=== PATIENT | male | born 1975 | race Caucasian/White ===

== ENCOUNTER 2017-06-29 21:27 | Emergency (ER) | payer OTHER ==
[~2017-06-29] VITALS: Ht 188 cm; Wt 95.3 kg
--- NOTE | 2017-06-29 21:54 | Emergency Room Report ---
History of Present Illness Time Seen by [id number] Presenting Problem in Triage Pt arrived:Walked Presenting Problem:C/O PAIN TO ABD. REPORTS HAS A HERNIA, INCREASED PAIN IN PAST 2 DAYS. RED AROUND SITE Onset of symptoms date/time:06/27/17/ or onset unknown for:MEDICAL HX UNKNOWN Treatment Prior to Arrival: [employer] Provided by: Sepsis Risk Assessment: Temp: 98.7 B/P: 133/91 MAP: 105 Pulse: 92 Resp: 18 Recent fever? N Clinical Suspician of Infection? N Mental Status: 1 - Regular (Normal Baseline) Sepsis Risk:Low Sepsis Risk Have you (or family members/close friends) recently traveled outside the [place]? N If Yes, where/when: Have you had exposure to infectious disease within the past month? TB? Other? Specify: Source patient, RN notes reviewed, family, old records Exam Limitations no limitations Comment progressive umbilical pain over the last 2 days with nausea and no fever with reddness at site Cardiac Chest Pain Chest pain indicative of cardiac No Timing/Duration this evening Severity moderate ALLERGIES Coded Allergies: No Known Allergies (06/29/17) Home Medications Reported Medications No Known Home Medications History Medical History General CAD? No Angina: No AR: No Hypertension? No Hyperlipidemia? No CHF? No DVT? No PE? No COPD? No Asthma? No Anemia? No GERD? No Gastric ulcers? No GI Bleed? No Hernia? No Thyroid Problems? No Hypothyroidism? No CVA? No Seizures? No Diabetes? No Renal Insuffiency? No End Stage Renal Disease? No UTI? No Stones? No BPH? No GB Disease: No Nephritic Syndrome? No Asplenia? No Hepatitis? No Sickle Cell Disease? No Arthritis? No Migraines? No Cataracts? No Glaucoma? No MRSA? No HIV? No TB? No Anxiety? No Depression? No Cancer? No More? No Immunization Hx DT/Tetanus 5-10 Years Ago Surgical Hx Previous Surgery?N Social History Smoking Hx Smoker: Current Every Day Smoker Tobacco: Yes Type Cigarettes Alcohol Alcohol: Yes Drugs none Review of Systems All Other Systems Reviewed and Negative Constitutional denies fever Eyes denies drainage ENT denies: ear pain, epistaxis, throat pain. Respiratory denies cough, denies shortness of breath, denies wheezing Cardiovascular denies chest pain, denies syncope Gastrointestinal see HPI, abdominal pain, denies diarrhea, nausea, denies vomiting Genitourinary denies: dysuria, frequency, hesitancy. Musculoskeletal denies back pain, denies joint pain, denies neck pain Skin denies rash Psychiatric/Neurological denies headache, denies seizure Physical Exam Vital Signs Vital Signs Date Time Temp Pulse Resp B/P Pulse O2 O2 Flow FiO2 Ox Delivery Rate 06/29 2330 18 06/29 2330 18 06/29 2311 71 18 118/70 93 06/29 2241 95 18 116/71 95 06/29 2136 98.7 92 18 133/91 95 - WBC >12,000 or <4,000 or 10% bands? 2 or more SIRS Criteria Met? B/P:118/70 MAP:105 Creatinine >2.0? UA output<0.5ml/kg/hr for 2 hrs? Platelet count >100,000? Lactate >2.0mmol/1? INR >1.2 or PTT > than 60 sec? Evidence of Organ Dysfunction? Provider documented clinical suspician of infection? N Sepsis Criteria Count: 1 Sepsis Risk: Low Sepsis Risk General Appearance no apparent distress Eye Exam - bilateral eye PERRL, bilateral eye EOMI Ear, Nose, Throat normal ENT inspection Neck supple Respiratory Status No: respiratory distress. Lung Sounds bilateral: lungs clear. 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 No Results/Orders Laboratory Tests 06/29/172155: Lactic Acid 1.2 06/29/172155: Sodium 142, Potassium 3.5, Chloride 104, Carbon Dioxide 27, BUN 11, Creatinine 1.2, Estimated Creat Clear 108, Estimated GFR (MDRD) 66, Glucose 99, Calcium 8.3 L, Total Bilirubin 0.6, AST 13 L, ALT 28, Alkaline Phosphatase 107, Total Protein 6.9, Albumin 3.6, Globulin 3.3 H, Albumin/Globulin Ratio 1.1, Amylase 64, Lipase 221, WBC 7.2, RBC 5.59, Hgb 17.2, Hct 52.3 H, MCV 93.6, RDW 13.2, Plt Count 200, MPV 8.8, Gran % 63.5, Gran # 4.6, Lymphocytes % 27.6, Monocytes % 6.6, Eosinophils % 2.0, Basophils % 0.3, Lymphocytes # 2.0, Monocytes # 0.5, Eosinophils # 0.2, Basophils # 0.0, PUBS MCHC 32.9, MCH 30.8 Current Medication Orders Sig/Neftali Start time Last Medication Dose Route Stop Time Status Admin Ketorolac 30 MG ONCE ONE 06/29 2330 DC 06/29 Tromethamine IV 06/29 2331 233 Morphine Sulfate 4 MG ONCE ONE 06/29 2330 DC 06/29 IV 06/29 2331 233 Ondansetron HCl 4 MG ONCE ONE 06/29 2330 DC 06/29 IV 06/29 233 2330 Ketorolac 0 .STK-MED ONE 06/29 2326 DC Tromethamine .ROUTE Ondansetron HCl 0 .STK-MED ONE 06/29 2326 DC .ROUTE Morphine Sulfate 0 .STK-MED ONE 06/29 2325 DC .ROUTE Iopamidol 75 ML ONCE ONE 06/29 2215 UNV 06/29 IV 06/29 2216 221 Sodium Chloride 10 ML ONCE ONE 06/29 2215 UNV 06/29 IV 06/29 2216 221 Sodium Chloride 10 ML PRN PRN 06/29 2200 AC IV 06/30 2154 Orders Procedure Date/time Status DIET-NOTHING BY MOUTH 06/[address] SCAN REQ 06/[address] ABD & PELVIS W/ CONTRAST 06/29 2156 Active IV SALINE LOCK 06/29 2155 Active LIPASE 06/29 2155 Complete LACTIC ACID 06/29 2155 Complete COMPLETE METABOLIC PANEL 06/29 2155 Complete CBC WITH AUTO DIFF 06/29 2155 Complete AMYLASE 06/29 2155 Complete XRAY/CT/US XRAY/CT/US CT abdomen, pelvis CT interpretation by discussed w/radiologist Time results known: 2342 CT Results abnormal (see report ) Departure Departure Time of Disposition 2339 Disposition DC Home or Self Care(routine) Clinical Impression Primary Impression: Umbilical hernia Qualifiers: Obstruction and gangrene presence: without obstruction or gangrene Qualified Code: K42.9 - Umbilical hernia without obstruction or gangrene Condition STABLE Referrals Chi Butler MD discussed with dr butler Patient Instructions DI for Ventral Hernia Additional Instructions call pcp and dr butler in am use motrin Discharge Counseling Counseled pt/family regarding diagnosis, test results, medications/RX, follow up needs Prescriptions Current Visit Scripts No Known Home Medications ED Critical Care Critical Care No at 1848
[2017-06-29 22:05] LABS: HEMOGLOBIN 17.2 g/dL (14.1-18.0); LYMPH % 27.6 % (10-50)
[2017-06-29 23:55] VITALS: BP 118/70
--- NOTE | 2017-06-30 08:03 | RADIOLOGY REPORT PS360 ---
CT ABD PELVIS W/ CONTRAST COMPARISON: None HISTORY: Periumbilical abdominal pain TECHNIQUE: Multiaxial scans obtained from the hemidiaphragms the pelvic floor and were performed with IV contrast only. Sagittal coronal reformats were evaluated as well. FINDINGS: Scans through the lower chest show a 6 mm noncalcified nodule right lower lobe. There is no pleural fluid. The liver spleen stomach pancreas and gallbladder appear normal. The adrenal glands are normal. The kidneys are normal size and show symmetrical function both appearing normal. Small bowel is unremarkable. The appendix is normal and partially air-filled. There is a small umbilical hernia measuring 2.1 cm at the mouth containing fat and posterior some minimal mesentery. There is mild to moderate scattered stool in ascending and transverse colon. The urinary bladder and prostate appear normal. IMPRESSION: 1. Small umbilical hernia as described above 2. 6 mm noncalcified pulmonary nodule, if the patient is high risk consider follow-up CT scan in 6-12 months, low risk suggest follow-up CT scan in 12 months for continuing evaluation
--- OUTSIDE RECORDS SUMMARY | 2017-07-07 00:45 | External Medical Summary Rpt | CCD ---
Demographics Preferred Language Uruguayan Marital Status Unknown Advent Affiliation Unknown Race Unknown Ethnic Group Unknown Author Author , DORIE OSHEA Address Unknown Phone Immunization No patient found.
--- OUTSIDE RECORDS SUMMARY | 2017-07-07 00:45 | External Medical Summary Rpt | CCD ---
Demographics Preferred Language Northern Irish Marital Status Unknown Caodaism Affiliation Unknown Race Unknown Ethnic Group Unknown Author Author , DORIE OSHEA Address Unknown Phone Immunization No patient found.
--- OUTSIDE RECORDS SUMMARY | 2017-07-07 00:45 | External Medical Summary Rpt ---
Author Author [employer], [employer] Organization [employer] Address Unknown Phone Unavailable Results Amylase [Enzymatic activity/volume] in Serum or Plasma Observa Value Referen Units Interpr Notes Date tion ce etation Range Amylase 25 - 115 U/L Normal No Jun 5 [Enzymati informati 2017 9:56 c on in PM activity/ source volume] data in Serum or Plasma Comprehensive metabolic 2000 panel in Serum or Plasma Observa Value Referen Units Interpr Notes Date tion ce etation Range Albumin/G 1.1 - 1.8 No Normal No Jun 5 lobulin informati informati 2017 9:56 [Mass on in on in PM ratio] in source source Serum or data data Plasma Albumin 3.4 - 5.0 gm/dL Normal No Jun 29 [Mass/vol informati 2017 9:56 ume] in on in PM Serum or source Plasma data Alkaline 46 - 116 U/L Normal No Jun 29 phosphata informati 2017 9:56 se on in PM [Enzymati source c data activity/ volume] in Serum or Plasma Bilirubin 0.2 - 1.0 mg/dL Normal No Jun 5 .total informati 2017 9:56 [Mass/vol on in PM ume] in source Serum or data Plasma Urea 7 - 18 mg/dL Normal No Jun 29 nitrogen informati 2017 9:56 [Mass/vol on in PM ume] in source Serum or data Plasma Calcium 8.5 - mg/dL Low No Jun 29 [Mass/vol 10.1 informati 2017 9:56 ume] in on in PM Serum or source Plasma data Chloride 98 - 107 mmoL/L Normal No Jun 5 [Moles/vo informati 2017 9:56 lume] in on in PM Serum or source Plasma data Carbon 21.0 - mmoL/L Normal No Jun 5 dioxide, 32.0 informati 2017 9:56 total on in PM [Moles/vo source lume] in data Serum or Plasma Creatinin 0.70 - mg/dL Normal No Jun 5 e 1.30 informati 2016 9:56 [Mass/vol on in PM ume] in source Serum or data Plasma Creatinin 50 - 200 ML/MIN Normal No Jun 29 e renal informati 2016 9:56 clearance on in PM source predicted data by Cockcroft -Gault formula Estimated >60 ML/MIN No REFERENCE Jun 29 informati RANGE: 2017 9:56 glomerula on in >60 PM r source ML/MIN/1. filtratio data 73 SQUARE n rate METERSIf (GF this patient is -A merican, then multiply theresult by 1.210. Globulin 1.3 - 3.2 gm/dL High No Jun 29 [Mass/vol informati 2016 9:56 ume] in on in PM Serum source data Glucose 74 - 106 mg/dL Normal No Jun 29 [Mass/vol informati 2016 9:56 ume] in on in PM Serum or source Plasma data Potassium 3.5 - 5.1 mmoL/L Normal No Jun 29 informati 2016 9:56 [Moles/vo on in PM lume] in source Serum or data Plasma Sodium 136 - 145 mmoL/L Normal No Jun 29 [Moles/vo informati 2016 9:56 lume] in on in PM Serum or source Plasma data Aspartate 15 - 37 U/L Low No Jun 29 informati 2016 9:56 aminotran on in PM sferase source [Enzymati data c activity/ volume] in Serum or Plasma Alanine 12 - 78 U/L Normal No Jun 29 aminotran informati 2016 9:56 sferase on in PM [Enzymati source c data activity/ volume] in Serum or Plasma Protein 6.4 - 8.2 gm/dL Normal No Jun 29 [Mass/vol informati 2016 9:56 ume] in on in PM Serum or source Plasma data Lipase [Enzymatic activity/volume] in Serum or Plasma Observa Value Referen Units Interpr Notes Date tion ce etation Range Lipase 73 - 393 U/L Normal No Jun 29 [Enzymati informati 2016 9:56 c on in PM activity/ source volume] data in Serum or Plasma Lactate [Moles/volume] in Blood Observa Value Referen Units Interpr Notes Date tion ce etation Range Lactate 0.4 - 2.0 mmol/L Normal No Jun 29 [Moles/vo informati 2016 9:56 lume] in on in PM Blood source data CBC W Auto Differential panel in Blood Observa Value Referen Units Interpr Notes Date tion ce etation Range Basophils 0 - 0.2 K/MM3 Normal No Jun 29 informati 2016 9:56 [#/volume on in PM ] in source Blood by data Automated count Basophils 0.1 - 2.0 % Normal No Jun 29 /100 informati 2016 9:56 leukocyte on in PM s in source Blood by data Automated count Eosinophi 0.0 - 0.4 K/mm3 Normal No Jun 29 ls informati 2016 9:56 [#/volume on in PM ] in source Blood by data Automated count Eosinophi 0.1 - % Normal No Jun 29 ls/100 12.0 informati 2016 9:56 leukocyte on in PM s in source Blood by data Automated count Granulocy 1.3 - 8.0 K/mm3 Normal No Jun 29 jhoan informati 2016 9:56 [#/volume on in PM ] in source Blood by data Automated count Granulocy 37.0 - % Normal No Jun 29 jhoan/100 80.0 informati 2016 9:56 leukocyte on in PM s in source Blood by data Automated count Hematocri 42.0 - % High No Jun 29 t [Volume 52.0 informati 2016 9:56 on in PM Fraction] source of Blood data Hemoglobi 14.1 - g/dL Normal No Jun 29 n 18.0 informati 2016 9:56 [Mass/vol on in PM ume] in source Blood data Lymphocyt 0.7 - 4.5 K/mm3 Normal No Jun 29 es informati 2016 9:56 [#/volume on in PM ] in source Unspecifi data ed specimen by Automated count Lymphocyt 10 - 50 % Normal No Jun 29 es informati 2016 9:56 [#/volume on in PM ] in source Unspecifi data ed specimen by Automated count Erythrocy 27 - 31.2 pg Normal No Jun 29 te mean informati 2016 9:56 corpuscul on in PM ar source hemoglobi data n [Entitic mass] Erythrocy 31.8 - g/dl Normal No Jun 29 te mean 35.4 informati 2016 9:56 corpuscul on in PM ar source hemoglobi data n concentra tion [Mass/vol ume] by Automated count Erythrocy 82.2 - fl Normal No Jun 29 te mean 97.8 informati 2017 9:56 corpuscul on in PM ar volume source [Entitic data volume] by Automated count Monocytes 0.1 - 1.0 K/mm3 Normal No Jun 29 informati 2016 9:56 [#/volume on in PM ] in source Blood by data Automated count Monocytes 1.7 - 9.3 % Normal No Jun 5 /100 informati 2016 9:56 leukocyte on in PM s in source Blood by data Automated count Platelet 7.4 - fl Normal No Jun 29 mean 10.4 informati 2016 9:56 volume on in PM [Entitic source volume] data in Blood by Automated count Platelets 142 - 424 K/mm3 Normal No Jun 29 informati 2016 9:56 [#/volume on in PM ] in source Blood data Erythrocy 4.6 - 6.2 M/mm3 Normal No Jun 5 jhoan informati 2016 9:56 [#/volume on in PM ] in source Amniotic data fluid Erythrocy 11.5 - % Normal No Jun 29 te 17.5 informati 2016 9:56 distribut on in PM ion width source [Entitic data volume] by Automated count Leukocyte 4.8 - K/MM3 Normal No Jun 5 s 10.8 informati 2016 9:56 [#/volume on in PM ] in source Blood data
--- OUTSIDE RECORDS SUMMARY | 2017-07-07 00:45 | External Medical Summary Rpt | CCD ---
Author Author , KYLAH OSHEA Address Unknown Phone Purpose Continuity of Care Document - 06-29-2017 through 2016
--- OUTSIDE RECORDS SUMMARY | 2017-07-07 00:45 | External Medical Summary Rpt | CCD ---
Author Author , DORIE OSHEA Address Unknown Phone [email or web address] Purpose Continuity of Care Document - through 2016
--- OUTSIDE RECORDS SUMMARY | 2017-07-07 00:45 | External Medical Summary Rpt | CCD ---
Author Author , DORIE OSHEA Address Unknown Phone [email or web address] Purpose Continuity of Care Document - through 2016
--- OUTSIDE RECORDS SUMMARY | 2017-07-07 00:45 | External Medical Summary Rpt ---
Author Author [employer], [employer] Organization [employer] Address Unknown Phone Unavailable [...]
== END 2017-06-29 23:56 | disposition home or self-care (01) ==
LOC: ER 21:27
PROVIDERS: Emergency Medicine
DX: K42.9 Umbilical hernia without obstruction or gangrene (principal); F17.210 Nicotine dependence, cigarettes, uncomplicated
CPT/HCPCS: J2405; Q9967

== ENCOUNTER → 2017-07-05 | Outpatient (CLI) | payer OTHER ==
[2017-07-05 11:28] LABS: HEMOGLOBIN 17.4 g/dL (14.1-18.0); LYMPH # 1.7 K/mm3 (0.7-4.5); LYMPH % 24.7 % (10-50)
[2017-07-05 11:35] LABS: URINE BILIRUBIN - DIPSTICK NEGATIVE (NEG); URINE BLOOD 1+ (NEG)
== END ==
LOC: LAB 10:41
PROVIDERS: Surgery
DX: K42.0 Umbilical hernia with obstruction, without gangrene (principal); Z01.812 Encounter for preprocedural laboratory examination

== ENCOUNTER 2017-07-06 09:44 | Day surgery (SDC) | payer OTHER ==
[~2017-07-06] VITALS: Ht 188 cm; Wt 95.3 kg
--- NOTE | 2017-07-06 14:14 | Operative Note ---
Surgeon/Diagnoses Surgeon/Credit Analyst(s) Date of procedure: 07/06/17 Surgeon: MD Klaudia John Credit Analyst(s): Renaldo Chavez Diagnoses Pre-op diagnosis: Incarcerated umbilical hernia Post-op diagnosis Incarcerated umbilical hernia Possible focal enteritis Procedure Procedure Procedure: Laparoscopic-assisted open repair of incarcerated umbilical hernia with 4.3 cm Ventralex mesh Indications: INDIGO LOPEZ is a 41 year-old Male with a history of painful "bulge" at the umbilicus with no ability to reduce secondary to pain. A CT scan showed signs consistent with incarcerated omentum versus possible preperitoneal fat. Findings: 1.5 cm defect at the umbilicus with complex "tracking" just below the fascial margin. Severe focal inflammatory response involving loop of small bowel in midabdomen ( noted laparoscopically) Procedure Description: After informed consent was obtained, the patient was taken to the operating room and placed in the supine position. General anesthesia was induced and his abdomen was prepped and draped in a sterile fashion. The area of incarceration was reduced. After infiltration with local anesthetic a curvilinear incision was made just below the umbilicus. The deep subcutaneous tissue was dissected with combination of sharp dissection, blunt dissection, and electrocautery. The 1.5 cm defect was encountered. Complex tracking in the caudal direction was noted. The abdomen was not able to be definitively entered and it was felt that the incarcerated tissue likely represented preperitoneal fat. A 4.3 cm Ventralex mesh was secured with interrupted Ethibond. The wound was irrigated and skin was then closed with 4-0 nylon. Secondary to the complex nature of the defect, the decision was made to place a 5 mm laparoscope in position for better visualization. After a stab incision was made in the LEFT upper quadrant the Veress needle was placed in position. The abdomen was insufflated. A 5 mm optical trochars placed in position along the LEFT mid flank. Visualization revealed adhered omentum and small bowel. A second 5 mm trocar was secured at the initial LEFT upper quadrant Veress needle site. Blunt dissection was utilized to carefully take down the adhesed tissue and focal severe inflammation of a loop of small bowel was noted. No sign of perforation or necrosis was seen in the decision was made to forego further maneuvering. Pneumoperitoneum was released and the trocars were removed. Skin was closed with 4-0 Monocryl. Dressings were applied. The patient's anesthetic agents were reversed and he was extubated prior to transfer to recovery. EBL (ml): 10 Anesthesia: GETA Complications: No immediate Specimens: None Disposition Disposition: Stable to recovery from where he will be discharged home. He will follow up in one week. at 1353
--- NOTE | 2017-07-06 14:28 | Anesthesia Record ---
Anesthesia Record Part II Discharge time: 1455 Destination: Same day surgery PACU nurse assessment review? Yes Patient is: Awake, Stable Anesthesia complications? No at 0483
--- NOTE | 2017-07-06 14:28 | Anesthesia Record ---
Anesthesia Record Part I Total IV fluids: 1800 EBL (ml): 0 Urine Output: 300 B/P: 131/79 % SaO2: 94 Pulse: 93 Resps: 12 Temp: 97.5 Patient is: Awake, Stable Stable to PACU at: 1425 at 1427
[2017-07-06 16:21] VITALS: BP 118/90
== END 2017-07-06 15:48 | disposition home or self-care (01) ==
LOC: SDC 09:44
PROC: 0WUF0JZ Supplement Abdominal Wall with Synthetic Substitute, Open Approach (ICD-10-PCS; principal; 2017-07-06)
DX: K42.0 Umbilical hernia with obstruction, without gangrene (principal)